=== PATIENT | male | born 1970 | race African-American/Black ===

== ENCOUNTER 2022-06-29 12:54 | Outpatient (RCR) | payer MEDICAID, SELFPAY ==
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
--- NOTE | 2022-06-29 15:11 | HP.OTFCE.D ---
FCE D/C Summary - Discharge KATHRINE JONES Jr. was seen for a one time visit for an FCE on 06/29/22 and is discharged.
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
== END 2022-06-29 19:00 | disposition home or self-care (01) ==
LOC: OT 12:54
PROVIDERS: PCP Internal Medicine; Referring Provider Internal Medicine; Visit Provider Internal Medicine
DX: G89.4 Chronic pain syndrome (principal); M62.81 Muscle weakness (generalized); R53.1 Weakness
CPT/HCPCS: 97750